=== PATIENT | male | born 1950 | race Caucasian/White ===

== ENCOUNTER 2018-01-10 10:00 | Emergency (ER) | payer MEDICARE ==
[2018-01-10 10:06] VITALS: BP 151/82; PULSE 92; TEMP 98.2; BMI 30.4
--- NOTE | 2018-01-10 10:38 | PDOC ---
History of Present Illness - General Chief Complaint: Pain Stated Complaint: LEG PAIN Time Seen by Provider: 01/10/18 10:12 History Source: Patient Exam Limitations: No Limitations - History of Present Illness Initial Comments: 01/10/18 10:36 Patient is a 67-year-old male with history of hypertension, high cholesterol, gastric ulcer, gout, presents with right lateral leg pain. Patient reports in October he fell x-ray of the hip was negative did not follow up. Since Sunday has been having right lateral leg pain denies trauma, denies falling, denies back pain. No chest pain or shortness of breath. Allergies: No known allergies Medications: [See medication list Family History: Non-contributory Social History: Denies smoking, alcohol use, or IVDU Review of Systems GENERAL/CONSTITUTIONAL: [No fever or chills. No weakness. No weight change.] HEAD, EYES, EARS, NOSE AND THROAT: [No change in vision. No ear pain or discharge. No sore throat. ] CARDIOVASCULAR: [No chest pain or shortness of breath.] RESPIRATORY: [No cough, wheezing, or hemoptysis.] GASTROINTESTINAL: [No nausea, vomiting, diarrhea or constipation. No rectal bleeding.] GENITOURINARY: [No dysuria, frequency, or change in urination.] MUSCULOSKELETAL: [No joint or muscle swelling or pain. No neck or back pain. Right lateral leg pain] SKIN AND BREASTS: [No rash or easy bruising.] NEUROLOGIC: [No headache, vertigo, loss of consciousness, or loss of sensation.] PSYCHIATRIC: [No depression or anxiety.] ENDOCRINE: [No increased thirst. No abnormal weight change.] HEMATOLOGIC/LYMPHATIC: [No anemia, easy bleeding, or history of blood clots.] ALLERGIC/IMMUNOLOGIC: [No hives or skin allergy. No latex allergy.] Physical Exam: GENERAL: [The patient is awake, alert, and fully oriented, in no acute distress. ] HEAD: [Normal with no signs of trauma.] EYES: [Pupils equal, round and reactive to light, extraocular movements intact, sclera anicteric, conjunctiva clear.] ENT: [Ears normal, nares patent, oropharynx clear without exudates. Moist mucous membranes. No uvula deviation] NECK: [Normal range of motion, supple without lymphadenopathy, JVD, or masses.] LUNGS: [Breath sounds equal, clear to auscultation bilaterally. No wheezes, and no crackles.] HEART: [Regular rate and rhythm, normal S1 and S2 without murmur, rub or gallop. ] ABDOMEN: [Soft, nontender, normoactive bowel sounds. No guarding, no rebound. No masses. No bruising or abrasions] MUSCULOSKELETAL: [Normal range of motion, no edema. Pain down right lateral leg , good range of motion to hip, No clubbing or cyanosis. No cords, erythema, or tenderness. No CVA Tenderness with fist palpation.] NEUROLOGICAL: [Cranial nerves II through XII grossly intact. Normal speech, normal gait.] SKIN: [Warm, Dry, normal turgor, no rashes or lesions noted.] 01/10/18 11:25 Past History - Past Medical History Allergies/Adverse Reactions: Allergies Allergy/AdvReac Type Severity Reaction Status Date / Time No Known Allergies Allergy Verified 01/10/18 10:01 Home Medications: Ambulatory Orders Enalapril Maleate [Vasotec] 20 mg PO DAILY 10/19/17 Ibuprofen [Motrin -] 600 mg PO QID #20 tablet 10/19/17 COPD: No HTN: Yes - Immunization History Immunization Up to Date: Yes - Suicide/Smoking/Psychosocial Hx Smoking History: Former smoker Have you smoked in the past 12 months: No If you are a former smoker, when did you quit?: 10 yrs ago Information on smoking cessation initiated: No Hx Alcohol Use: Yes (daily) Drug/Substance Use Hx: No Substance Use Type: Alcohol Hx Substance Use Treatment: No *Physical Exam - Vital Signs Last Vital Signs Temp Pulse Resp BP Pulse Ox 98.2 F 92 H 18 151/82 98 01/10/18 10:02 01/10/18 10:02 01/10/18 10:02 01/10/18 10:02 01/10/18 10:02 Medical Decision Making - Medical Decision Making 01/10/18 11:33 A/P: Patient with right lateral leg pain, history of same, patient works as a sales driver. Denies any trauma. Patient came to emergency department requesting MRI. I spoke to Dr. Fabian patient to be seen upon discharge and she will work on getting patient approved for MRI. I will give Toradol 60 mg in ER, discharged with follow-up immediately upon discharge. Agrees with plan of care. Patient reports relief of some pain after injection. *DC/Admit/Observation/Transfer Diagnosis at time of Disposition: Leg pain, lateral Qualifiers: Laterality: right Qualified Code(s): M79.604 - Pain in right leg - Discharge Dispostion Disposition: HOME Condition at time of disposition: Stable Admit: No - Referrals Referrals: Cornelius Joseph MD [Primary Care Provider] - Angélica Fabian MD [Staff Physician] - ([address] [place] [address]) - Patient Instructions Additional Instructions: No heavy lifting, recommend follow-up with Dr. Fabian upon discharge today. - Post Discharge Activity
[2018-01-10] MEDS ORDERED: KETOROLAC TROMETHAMINE 60 MG/2 ML VIAL IM ONE (10:39)
[2018-01-10] MEDS ORDERED: KETOROLAC TROMETHAMINE 60 MG/2 ML VIAL ONE (10:45)
== END 2018-01-10 11:40 | disposition home or self-care (01) ==
LOC: JERFT 10:00
PROC: 3E0233Z Introduction of Anti-inflammatory into Muscle, Percutaneous Approach (ICD-10-PCS; principal; 2018-01-10)
DX: M79.604 Pain in right leg (principal); I10 Essential (primary) hypertension; E78.00 Pure hypercholesterolemia, unspecified; M10.9 Gout, unspecified; Z87.891 Personal history of nicotine dependence
CPT/HCPCS: 99281-25